=== PATIENT | female | born 1970 | race African-American/Black ===

== ENCOUNTER 2016-11-01 08:55 | Day surgery (SDC) | payer BC, OTHER ==
[~2016-11-01 08:55] MED LIST: PROPOFOL INJ 200 MG/20 ML VIAL IV ONE
--- NOTE | 2016-11-01 10:14 | Operative Report ---
Operative Report DATE OF SURGERY: 11/01/16 Operative Report: The risks, benefits and alternatives of the procedure including risks of bleeding, perforation requiring surgery are explained to the patient in detail and informed consent is obtained. The patient is taken back to the endoscopy suite and placed in a left lateral decubital position. Timeout is called. Propofol indication is administered. A rectal examination was done which did not reveal any masses, tears or fissures. An Olympus videoscope was inserted into the patient's rectum. Keeping the lumen in site at all times the scope was then gradually advanced all the way to the cecum the cecum as identified by the usual anatomical landmarks including the ileocecal valve as well as the appendiceal office. Photodocumentation was obtained. Prep is good. The scope is then sequentially pulled back via the rest segments of the colon including the ascending colon, hepatic flexure, transverse colon, splenic flexure, descending colon and finally into the rectosigmoid colon. Retroflexion maneuver is performed. PREOPERATIVE DIAGNOSIS: Abdominal pain, change of bowel habits. POSTOPERATIVE DIAGNOSIS: Diverticulosis, left and right sided. Internal hemorrhoids. 2 colon polyps that I removed via snare polypectomy and the rectosigmoid region. OPERATION: Colonoscopy with snare polypectomy. SURGEON: PUNEET DE LOS SANTOS ANESTHESIA: LMAC TISSUE REMOVED OR ALTERED: Colon specimens retrieved. COMPLICATIONS: None. ESTIMATED BLOOD LOSS: none. INTRAOPERATIVE FINDINGS: As described above. No evidence of mucosal inflammation, or AVMs. No obstruction noted PROCEDURE: Patient tolerated the procedure well. No immediate postprocedure complications are noted. Patient is discharged in good condition. Discharge date 11/01/2016. Discharge diet: Regular. Discharge activity: Regular. Patient does have a 2-3 week follow-up to discuss findings. She is instructed to go to emergency room I'll call the office should there be any further problems or questions. Surveillance colonoscopy in 5 years. Await on biopsies.
[2016-11-01 10:41] VITALS: BP 126/936
== END 2016-11-01 11:07 | disposition home or self-care (01) ==
LOC: END 08:55
PROVIDERS: ATTEND Internal Medicine Gastroenterology
PROC: 0DBN8ZX Excision of Sigmoid Colon, Via Natural or Artificial Opening Endoscopic, Diagnostic (ICD-10-PCS; principal; 2016-11-01 12:00)
DX: K57.30 Diverticulosis of large intestine without perforation or abscess without bleeding (principal); D12.5 Benign neoplasm of sigmoid colon; K64.8 Other hemorrhoids; I10 Essential (primary) hypertension; D64.9 Anemia, unspecified; M19.90 Unspecified osteoarthritis, unspecified site; J45.909 Unspecified asthma, uncomplicated; Z79.899 Other long term (current) drug therapy
CPT/HCPCS: 45385; 88305 ×2; J2704; 810

== ENCOUNTER → 2017-02-14 | Outpatient (CLI) | payer BC, OTHER ==
--- NOTE | 2017-02-14 21:35 | EKG REPORT ---
SEVERITY:- BORDERLINE ECG - SINUS RHYTHM PROBABLE LEFT ATRIAL ABNORMALITY BORDERLINE LEFT AXIS DEVIATION BORDERLINE T WAVE ABNORMALITIES : Confirmed by: Clementine Grant 14-Feb-2017 21:34:07
== END ==
LOC: OD 15:06
PROVIDERS: ATTEND Family Medicine
DX: Z01.818 Encounter for other preprocedural examination (principal)
CPT/HCPCS: 93005; 93010

== ENCOUNTER 2017-12-23 17:29 | Emergency (ER) | payer BC, OTHER ==
[2017-12-23 17:45] VITALS: BP 164/101
[2017-12-23] MEDS ORDERED: CEPHALEXIN 500 MG CAPSULE PO ONE (18:32)
--- NOTE | 2017-12-23 18:39 | ER Document Report ---
HPI - HPI Patient complains to provider of: Right great toe pain Onset: Other - 3 weeks Onset/Duration: Worse Quality of pain: Achy Pain Level: 3 Context: Patient complains of tenderness to right great toe for the past 3 weeks that worsened over the past 3 days. Patient complains of swelling and some skin discoloration at the site. Associated Symptoms: denies: Fever Exacerbated by: Movement Relieved by: Denies Similar symptoms previously: No Recently seen / treated by doctor: No - ROS ROS below otherwise negative: Yes Systems Reviewed and Negative: Yes All other systems reviewed and negative - CONSTITUTIONAL Constitutional: DENIES: Fever, Chills - REPRODUCTIVE Reproductive: DENIES: : - MUSCULOSKELETAL Musculoskeletal: REPORTS: Extremity pain, Swelling - DERM Notes: Skin discoloration to right great toe Past Medical History - General Information source: Patient - Social History Smoking Status: Current Every Day Smoker Smoking Education Provided: Yes Drug Abuse: None Occupation: Sorting at [employer] Family History: Reviewed & Not Pertinent - Past Medical History Cardiac Medical History: Reports: Hx Hypertension Denies: Hx Coronary Artery Disease, Hx Heart Attack Pulmonary Medical History: Reports: Hx Asthma, Hx Pneumonia - hx Denies: Hx Bronchitis, Hx COPD Neurological Medical History: Denies: Hx Cerebrovascular Accident, Hx Seizures GI Medical History: Reports: Hx Gastroesophageal Reflux Disease Musculoskeltal Medical History: Reports Hx Arthritis Past Surgical History: Reports: Hx Section, Hx Gynecologic Surgery - tubal , Hx Hysterectomy, Hx Tubal Ligation - Immunizations Hx Diphtheria, Pertussis, Tetanus Vaccination: No Vertical Provider Document - CONSTITUTIONAL Agree With Documented VS: Yes Exam Limitations: No Limitations General Appearance: WD/WN, No Apparent Distress - INFECTION CONTROL TRAVEL OUTSIDE OF THE [place] IN LAST 30 DAYS: No - HEENT HEENT: Atraumatic, Normocephalic - NECK Neck: Normal Inspection. negative: Supple - RESPIRATORY Respiratory: Breath Sounds Normal, No Respiratory Distress O2 Sat by Pulse Oximetry: 96 - CARDIOVASCULAR Cardiovascular: Regular Rate, Regular Rhythm Pulses: Normal: Dorsalis pedis - MUSCULOSKELETAL/EXTREMETIES Musculoskeletal/Extremeties: MAEW, Tender - Right great toe tenderness with minimal swelling along lateral nail margin - NEURO Level of Consciousness: Awake, Alert, Appropriate Motor/Sensory: No Motor Deficit - DERM Integumentary: Warm, Dry Notes: Paronychia to right great toe Course - Vital Signs Vital signs: Temp Pulse Resp BP Pulse Ox 97.9 F 83 16 164/101 H 96 12/23/17 17:43 12/23/17 17:43 12/23/17 17:43 12/23/17 17:43 12/23/17 17:43 Discharge - Discharge Clinical Impression: Hx of essential hypertension, Paronychia of toe of right foot Condition: Stable Disposition: HOME, SELF-CARE Instructions: Cephalexin ([facility]), Epsom Salt Soaks ([facility]), Paronychia ([facility]) Additional Instructions: Return immediately for any new or worsening symptoms Followup with your primary care provider, call tomorrow to make a followup appointment Prescriptions: Cephalexin Monohydrate [Keflex 500 mg Capsule] 500 mg PO Q6H 5 Days capsule Forms: Smoking Cessation Education, Elevated Blood Pressure Referrals: JONAH CACERES DPM [ACTIVE STAFF] - Follow up as needed ZELALEM ANDERSON DPM [ACTIVE STAFF] - Follow up as needed
== END 2017-12-23 18:52 | disposition home or self-care (01) ==
LOC: ER 17:29
DX: L03.031 Cellulitis of right toe (principal); I10 Essential (primary) hypertension; M79.674 Pain in right toe(s); M79.89 Other specified soft tissue disorders; F17.200 Nicotine dependence, unspecified, uncomplicated
CPT/HCPCS: 99283

== ENCOUNTER 2018-02-23 19:35 | Emergency (ER) | payer OTHER ==
--- NOTE | 2018-02-23 19:58 | ER Document Report ---
ED Medical Screen (RME) - General Chief Complaint: Irregular Pulse Stated Complaint: POSSIBLE HEART ISSUE Time Seen by Provider: 02/23/18 19:51 Notes: RAPID MEDICAL EVALUATION DISCLOSURE I have seen this patient as part of a Rapid Medical Evaluation and, if applicable, placed any initially appropriate orders. The patient will be seen and fully evaluated, including a full history and physical exam, by a provider ( in Main ED or Fast Track) when a room becomes available. 47-year-old female here with complaints of palpitations ongoing for the past 2 weeks. They are constant. They are not accompanied by shortness of breath or chest pain. She denies any headaches vision change fevers chills. No new medications. Denies excessive energy drinks or caffeine intake. Denies prior history of thyroid disease. No history of palpitations in the past. EXAM Regular rate and rhythm with scattered pauses approximately 1-2 seconds Clear to auscultation bilaterally TRAVEL OUTSIDE OF THE [place] IN LAST 30 DAYS: No - Related Data Allergies/Adverse Reactions: No Known Allergies Allergy (Verified 12/23/17 17:36) Past Medical History - Past Medical History Cardiac Medical History: Reports: Hx Hypertension Denies: Hx Coronary Artery Disease, Hx Heart Attack Pulmonary Medical History: Reports: Hx Asthma, Hx Pneumonia - hx Denies: Hx Bronchitis, Hx COPD Neurological Medical History: Denies: Hx Cerebrovascular Accident, Hx Seizures Renal/ Medical History: Denies: Hx Peritoneal Dialysis GI Medical History: Reports: Hx Gastroesophageal Reflux Disease Musculoskeltal Medical History: Reports Hx Arthritis Past Surgical History: Reports: Hx Section, Hx Gynecologic Surgery - tubal , Hx Hysterectomy, Hx Tubal Ligation - Immunizations Hx Diphtheria, Pertussis, Tetanus Vaccination: No Physical Exam - Vital signs Vitals: Temp Pulse Resp BP Pulse Ox 98.4 F 91 16 153/90 H 97 02/23/18 19:45 02/23/18 19:45 02/23/18 19:45 02/23/18 19:45 02/23/18 19:45 Course - Vital Signs Vital signs: Temp Pulse Resp BP Pulse Ox 98.4 F 91 16 153/90 H 97 02/23/18 19:45 02/23/18 19:45 02/23/18 19:45 02/23/18 19:45 02/23/18 19:45
--- NOTE | 2018-02-23 20:45 | RADIOLOGY REPORT (SQ) ---
EXAM DESCRIPTION: CHEST 2 VIEWS COMPLETED DATE/TIME: 02/23/2018 8:35 pm REASON FOR STUDY: palpitations COMPARISON: 08/11/2016 EXAM PARAMETERS: NUMBER OF VIEWS: two views TECHNIQUE: Digital Frontal and Lateral radiographic views of the chest acquired. RADIATION DOSE: NA LIMITATIONS: none FINDINGS: LUNGS AND PLEURA: No opacities, masses or pneumothorax. No pleural effusion. MEDIASTINUM AND HILAR STRUCTURES: No masses or contour abnormalities. HEART AND VASCULAR STRUCTURES: Heart normal size. No evidence for failure. BONES: No acute findings. HARDWARE: None in the chest. OTHER: No other significant finding. IMPRESSION: NO ACUTE RADIOGRAPHIC FINDING IN THE CHEST. TECHNICAL DOCUMENTATION: JOB ID: [id number] [employer]- All Rights Reserved Reading location - IP/workstation name: [email or web address]
[2018-02-23 20:50] LABS: ABSOLUTE EOSINOPHILS # (AUTO) 0.2 10^3/uL (0.0-0.6); ABSOLUTE LYMPHOCYTES (AUTO) 2.2 10^3/uL (0.5-4.7); ABSOLUTE MONOCYTES (AUTO) 0.4 10^3/uL (0.1-1.4); ABSOLUTE NEUT (AUTO) 3.7 10^3/uL (1.7-8.2); BASOPHILS % (AUTO) 0.4 % (0-2); EOSINOPHILS % (AUTO) 3.7 % (0-6); HEMATOCRIT 42.4 % (36.0-47.0); MEAN CORPUSCULAR HEMOGLOBIN 27.3 pg (27.0-33.4); MEAN CORPUSCULAR HGB CONC 33.1 g/dL (32.0-36.0); MEAN CORPUSCULAR VOLUME 83 fl (80-97); MONOCYTES % (AUTO) 6.6 % (3-13); PLATELET COUNT 240 10^3/uL (150-450); RED BLOOD COUNT 5.14 10^6/uL (3.72-5.28); RED CELL DISTRIBUTION WIDTH 14.5 % (11.5-14.0); SEGMENTED NEUTROPHILS % (AUTO) 56.3 % (42-78); TOTAL CELLS COUNTED % (AUTO) 100 %; WHITE BLOOD COUNT 6.6 10^3/uL (4.0-10.5)
--- NOTE | 2018-02-23 20:54 | ER Document Report ---
ED General - General Chief Complaint: Irregular Pulse Stated Complaint: POSSIBLE HEART ISSUE Time Seen by Provider: 02/23/18 19:51 Notes: Patient is a 47-year-old female who presents emergency department the chief complaint of palpitations for the past 3 weeks. Patient states that this started ever since her dad in the same timeframe. She admits that they are very frequent. She denies any associated chest pain, shortness of breath, reflux, dyspnea, near syncope, headaches, vision changes. Patient has not followed with her primary care provider regarding this. Patient does have a history of hypertension. Denies any previous history of coronary artery disease. Does not have a history of stress test. Patient has been traveling frequently back and forth to [place] due to recent stresses on her family. She denies any use of control or recent surgery. She admits to occasional tobacco use. TRAVEL OUTSIDE OF THE [place] IN LAST 30 DAYS: No - Related Data Allergies/Adverse Reactions: No Known Allergies Allergy (Verified 12/23/17 17:36) Past Medical History - Social History Smoking Status: Unknown if Ever Smoked Chew tobacco use (# tins/day): No Frequency of alcohol use: None Drug Abuse: None Family History: Reviewed & Not Pertinent Patient has suicidal ideation: No Patient has homicidal ideation: No - Past Medical History Cardiac Medical History: Reports: Hx Hypertension Denies: Hx Coronary Artery Disease, Hx Heart Attack Pulmonary Medical History: Reports: Hx Asthma, Hx Pneumonia - hx Denies: Hx Bronchitis, Hx COPD Neurological Medical History: Denies: Hx Cerebrovascular Accident, Hx Seizures Renal/ Medical History: Denies: Hx Peritoneal Dialysis GI Medical History: Reports: Hx Gastroesophageal Reflux Disease Musculoskeltal Medical History: Reports Hx Arthritis Past Surgical History: Reports: Hx Section, Hx Gynecologic Surgery - tubal , Hx Hysterectomy, Hx Tubal Ligation - Immunizations Hx Diphtheria, Pertussis, Tetanus Vaccination: No Review of Systems - Review of Systems Constitutional: No symptoms reported EENT: No symptoms reported Cardiovascular: See HPI Respiratory: No symptoms reported Gastrointestinal: No symptoms reported Musculoskeletal: No symptoms reported -: Yes All other systems reviewed and negative Physical Exam - Vital signs Vitals: Temp Pulse Resp BP Pulse Ox 98.4 F 91 16 153/90 H 97 02/23/18 19:45 02/23/18 19:45 02/23/18 19:45 02/23/18 19:45 02/23/18 19:45 - Notes Notes: PHYSICAL EXAM GENERAL: Alert, interacts well. HEAD: Normocephalic, atraumatic. EYES: Pupils equal, round, and reactive to light. Extraocular movements intact. ENT: Oral mucosa moist, tongue midline. NECK: Full range of motion. Supple. Trachea midline. LUNGS: Clear to auscultation bilaterally, no wheezes, rales, or rhonchi. No respiratory distress. HEART: Regular rate and rhythm. No murmurs, gallops, or rubs. ABDOMEN: Soft, nondistended, nontender. No guarding, rebound, or rigidity.. Bowel sounds present in all 4 quadrants. EXTREMITIES: Moves all 4 extremities spontaneously. No edema, radial and dorsalis pedis pulses 2/4 bilaterally. No cyanosis. NEUROLOGICAL: Alert and oriented x4. Normal speech. PSYCH: Normal affect, normal mood. SKIN: Warm, dry, normal turgor. No rashes or lesions noted. Course - Re-evaluation Re-evalutation: 02/23/18 22:29 Patient presents with palpitations but is in no acute distress. Vitals within normal limits at time of arrival. EKG unremarkable with a normal sinus rhythm. Laboratories are unremarkable. Patient denies any chest pain, shortness of breath, or vomiting. At this time based on exam and history do not suspect a new onset arrhythmia, ACS, acute pulmonary embolus, aortic dissection. Patient encouraged to follow-up with their primary care physician as well as cardiology and a referral has been provided. At this time will discharge with return precautions and follow-up recommendations. Verbal discharge instructions given a the bedside and opportunity for questions given. Medication warnings reviewed. Patient is in agreement with this plan and has verbalized understanding of return precautions and the need for primary care follow-up in the next 24-72 hours. - Vital Signs Vital signs: Temp Pulse Resp BP Pulse Ox 98.4 F 91 16 153/90 H 97 02/23/18 19:45 02/23/18 19:45 02/23/18 19:45 02/23/18 19:45 02/23/18 19:45 - Laboratory Result Diagrams: 02/23/18 20:22 02/23/18 20:22 Laboratory results interpreted by me: 02/23/18 02/23/18 20:22 20:22 RDW 14.5 H Sodium 145.2 H - Diagnostic Test Radiology reviewed: Image reviewed, Reports reviewed - EKG Interpretation by Me EKG shows normal: Sinus rhythm Rate: Normal Rhythm: NSR When compared to previous EKG there are: No significant change Discharge - Discharge Clinical Impression: Palpitations Condition: Good Disposition: HOME, SELF-CARE Instructions: Palpitations (Irregular or Rapid Heartrate) ([facility]) Additional Instructions: Please follow-up with your primary care doctor or a senior hr generalist regarding your palpitations. Return if you develop chest pain, shortness of breath, pass out, or have any other symptoms that are worrisome to you. Referrals: OSMANY FINE MD [Primary Care Provider] - Follow up in 3-5 days LIO CORBIN MD [ACTIVE STAFF] - Follow up in 3-5 days (cardiology)
[2018-02-23 21:08] LABS: URINE AMPHETAMINES SCREEN NEGATIVE; URINE BARBITURATES SCREEN NEGATIVE; URINE BENZODIAZEPINES SCREEN NEGATIVE; URINE COCAINE SCREEN NEGATIVE; URINE MARIJUANA (THC) SCREEN NEGATIVE; URINE METHADONE SCREEN NEGATIVE; URINE PHENCYCLIDINE SCREEN NEGATIVE
[2018-02-23 21:11] LABS: ANION GAP 12 (5-19); BLOOD UREA NITROGEN 14 mg/dL (7-20); CALCIUM 9.6 mg/dL (8.4-10.2); CARBON DIOXIDE 30 mmol/L (22-30); CHLORIDE 103 mmol/L (98-107); GLUCOSE 99 mg/dL (75-110); PHOSPHORUS 3.9 mg/dL (2.5-4.5); POTASSIUM 3.6 mmol/L (3.6-5.0); SODIUM 145.2 mmol/L (137-145)
[2018-02-23 22:43] VITALS: BP 141/96
--- NOTE | 2018-02-23 23:34 | EKG REPORT ---
SEVERITY:- BORDERLINE ECG - SINUS RHYTHM PROBABLE LEFT ATRIAL ABNORMALITY BORDERLINE LEFT AXIS DEVIATION : Confirmed by: Clementine Grant 23-Feb-2018 23:33:27
== END 2018-02-23 22:43 | disposition home or self-care (01) ==
LOC: ER 19:35
DX: R00.2 Palpitations (principal); I10 Essential (primary) hypertension; Z90.710 Acquired absence of both cervix and uterus
CPT/HCPCS: 36415; 71046; 80048; 80307; 83735; 84100; 84443; 84484; 85025; 85379; 93005; 93010; 99285

== ENCOUNTER 2018-03-06 19:56 | Emergency (ER) | payer OTHER ==
[2018-03-06 20:35] VITALS: BP 147/101
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
== END 2018-03-07 00:30 | disposition home or self-care (01) ==
LOC: ER 19:56
DX: S40.021A Contusion of right upper arm, initial encounter (principal); V49.9XXA Car occupant (driver) (passenger) injured in unspecified traffic accident, initial encounter; I10 Essential (primary) hypertension
CPT/HCPCS: 99283

== ENCOUNTER 2018-10-14 07:27 | Emergency (ER) | payer BC, OTHER ==
[2018-10-14] MEDS ORDERED: AMLODIPINE BESYLATE 5 MG TABLET PO ONE (08:00)
[2018-10-14] MEDS ORDERED: AMOXICILLIN TR/POT CLAVULANATE 500-125 MG TAB PO ONE (08:01)
--- NOTE | 2018-10-14 08:06 | ER Document Report ---
ED General - General Chief Complaint: Abscess Stated Complaint: LUMP ON SIDE OF EAR Time Seen by Provider: 10/14/18 07:46 Mode of Arrival: Ambulatory Information source: Patient TRAVEL OUTSIDE OF THE [place] IN LAST 30 DAYS: No - HPI Patient complains to provider of: Swelling behind right ear Onset: Other - 48-year-old female that presents for evaluation of her right ear she notes that it has been there for several days but seems a little bit uncomfortable and has worsened over the last day or so. Denies any fevers or chills, loss of hearing, headache, symptoms like this in the past. - Related Data Allergies/Adverse Reactions: No Known Allergies Allergy (Verified 10/14/18 07:28) Past Medical History - General Information source: Patient - Social History Smoking Status: Current Every Day Smoker Family History: Reviewed & Not Pertinent Patient has suicidal ideation: No Patient has homicidal ideation: No - Past Medical History Cardiac Medical History: Reports: Hx Hypertension Denies: Hx Coronary Artery Disease, Hx Heart Attack Pulmonary Medical History: Reports: Hx Asthma, Hx Pneumonia - hx Denies: Hx Bronchitis, Hx COPD Neurological Medical History: Denies: Hx Cerebrovascular Accident, Hx Seizures Renal/ Medical History: Denies: Hx Peritoneal Dialysis GI Medical History: Reports: Hx Gastroesophageal Reflux Disease Musculoskeletal Medical History: Reports Hx Arthritis Past Surgical History: Reports: Hx Section, Hx Gynecologic Surgery - tubal , Hx Hysterectomy, Hx Tubal Ligation - Immunizations Hx Diphtheria, Pertussis, Tetanus Vaccination: No Review of Systems - Review of Systems -: Yes All other systems reviewed and negative Physical Exam - Vital signs Vitals: Temp Pulse Resp BP Pulse Ox 98.3 F 95 18 157/107 H 98 10/14/18 07:30 10/14/18 07:30 10/14/18 07:30 10/14/18 07:30 10/14/18 07:30 - General General appearance: Appears well, Alert - HEENT Ears: Other - There is some swelling behind the right ear over the temporal bone, there is no obvious fluctuance no obvious erythema, this is in line with the cervical lymph chain External canal: Other - Respiratory Respiratory status: No respiratory distress Chest status: Nontender Breath sounds: Normal Chest palpation: Normal - Cardiovascular Rhythm: Regular Heart sounds: Normal auscultation Murmur: No - Abdominal Inspection: Normal Distension: No distension Bowel sounds: Normal Tenderness: Nontender Organomegaly: No organomegaly - Back Back: Normal, Nontender - Extremities General upper extremity: Normal inspection, Nontender, Normal color, Normal ROM, Normal temperature General lower extremity: Normal inspection, Nontender, Normal color, Normal ROM, Normal temperature, Normal weight bearing. No: Rey's sign - Neurological Neuro grossly intact: Yes Cognition: Normal Orientation: AAOx4 Ector Coma Scale Eye Opening: Spontaneous Alexx Coma Scale Verbal: Oriented Ector Coma Scale Motor: Obeys Commands Alexx Coma Scale Total: 15 Speech: Normal Motor strength normal: LUE, RUE, LLE, RLE Sensory: Normal - Psychological Associated symptoms: Normal affect, Normal mood Course - Re-evaluation Re-evalutation: 48-year-old female presents for evaluation of pain and swelling behind the right ear. On examination there is some swelling which is tense behind the right ear. No obvious fluctuance no obvious erythema as such not believe this represents an abscess at this time, it is possible this represents an adenitis. We will plan for this patient undergo discharge with a course of antibiotics at this time, do not believe this represents more serious underlying issue such as osteomyelitis or malignant otitis externa. - Vital Signs Vital signs: Temp Pulse Resp BP Pulse Ox 98.2 F 78 18 142/100 H 99 10/14/18 08:52 10/14/18 08:52 10/14/18 08:52 10/14/18 08:52 10/14/18 08:52 Discharge - Discharge Clinical Impression: Acute cervical adenitis, Tobacco abuse Condition: Good Disposition: HOME, SELF-CARE Instructions: Augmentin ([facility]), Cervical Lymphadenitis ([facility]) Additional Instructions: You were seen today in the emergency department for the swollen node behind her ear. You had evaluation including a physical exam. I believe that you should use the antibiotic prescribed you twice daily for the next week. Use warm compresses twice daily as well for 15 minutes at least. If this begins to grow, begins to drain, you have the inability to hear out of that side of your ear or you begin to feel worse with worsening headaches return the emergency room as it may be a more serious condition. Otherwise schedule an appoint with your primary physician. I contacted your pharmacy, they currently are closed. You have been given a smaller dose of amlodipine that you are probably used to taking but you should fill this prescription until you are able to see her primary physician and use it as directed. Prescriptions: Amlodipine Besylate [Norvasc 5 mg Tablet] 5 mg PO DAILY #30 tablet Amox Tr/Potassium Clavulanate [Augmentin 875-125 Tablet] 1 tab PO BID 7 Days #14 tablet Forms: Smoking Cessation Education Referrals: OSMANY FINE MD [Primary Care Provider] - Follow up as needed
[2018-10-14 08:54] VITALS: BP 142/100
== END 2018-10-14 08:52 | disposition home or self-care (01) ==
LOC: ER 07:27
DX: I88.9 Nonspecific lymphadenitis, unspecified (principal); F17.200 Nicotine dependence, unspecified, uncomplicated; I10 Essential (primary) hypertension; J45.909 Unspecified asthma, uncomplicated
CPT/HCPCS: 99283